=== PATIENT | male | born 1955 | race Caucasian/White ===

== ENCOUNTER 2025-05-08 18:41 | Emergency (ER) | payer MEDICARE, BC ==
[2025-05-08] MEDS ORDERED: Sodium Chloride 0.9% 10 ML Syringe FLUSH PRN (19:18)
[2025-05-08 19:32] LABS: APPEARANCE,URINE CLEAR (CLEAR); GLUCOSE,URINE 500 (NEGATIVE); OCCULT BLOOD,URINE NEGATIVE (NEGATIVE)
[2025-05-08 19:38] LABS: AMPHETAMINES,URINE NEGATIVE (NEGATIVE); BARBITURATES,URINE NEGATIVE (NEGATIVE); MDMA (ECSTASY), URINE NEGATIVE (NEGATIVE); METHAMPHETAMINES,URINE NEGATIVE (NEGATIVE); OPIATES,URINE NEGATIVE (NEGATIVE); OXYCODONE,URINE NEGATIVE (NEGATIVE); PHENCYCLIDINE,URINE NEGATIVE (NEGATIVE); TCA,URINE NEGATIVE (NEGATIVE)
[2025-05-08 19:43] LABS: O2 DELIVERY DEVICE ROOM AIR
[2025-05-08 19:46] LABS: BASOPHILS PERCENT AUTO 0.3 % (0.0-1.0); EOSINOPHILS PERCENT AUTO 0.8 % (1.0-3.0); LYMPHOCYTES PERCENT AUTO 8.4 % (20.5-50.1); MONOCYTES PERCENT AUTO 6.0 % (2-8); NEUTROPHILS PERCENT AUTO 84.5 % (42.2-75.2); PLATELET COUNT,PLT 116 10^3/uL (150-450); RED BLOOD CELL COUNT 5.08 10^6/uL (4.6-6.2); WHITE BLOOD CELL COUNT,WBC 9.5 10^3/uL (5.0-10.0)
[2025-05-08 19:54] LABS: PCO2 VENOUS 34 mmHg (41-51); PH,VENOUS 7.34 (7.31-7.41); PO2 VENOUS 55 mmHg (35-42)
[2025-05-08 19:55] LABS: BASE EXCESS VENOUS -6.6 mmol/l ((-2)-(+3)); BICARBONATE,VENOUS 18 mmol/l (19-25); O2 SATURATION VENOUS 84.2 % (60-80)
[2025-05-08 20:02] LABS: EPITHELIAL CELLS,URINE FEW /HPF (NOT SEEN)
[2025-05-08 20:42] LABS: LACTIC ACID 2.6 mmol/L (0.4-2.0)
[2025-05-08 20:44] LABS: ALANINE AMINOTRANSFERASE,ALT 23 U/L (16-63); ASPARTATE AMNIOTRANSFERASE,AST 19 U/L (15-37); BILIRUBIN TOTAL 0.8 mg/dL (0.2-1.0); BLOOD UREA NITROGEN,BUN 20 mg/dL (7-18); CARBON DIOXIDE,CO2 20 mmol/L (21-32); CHLORIDE,CL 101 mmol/L (98-107); CREATININE 2.23 mg/dL (0.70-1.30); POTASSIUM,K 4.1 mmol/L (3.5-5.1); PROTEIN TOTAL,TP 6.8 g/dL (6.4-8.2); SODIUM,NA 135 mmol/L (136-145)
[2025-05-08 20:45] LABS: INR 1.0 (0.9-1.2); PTT,PARTIAL THROMBOPLSTIN TIME 21.6 SEC (22.0-34.0)
[2025-05-08 20:46] LABS: ESTIMATED GFR 31 mL/min (>=60); ETHANOL BLOOD MEDICAL < 3 mg/dL (0); GLUCOSE RANDOM 494 mg/dL (70-99)
[2025-05-08] MEDS: Magnesium Sulfate 2 GM/50 mL 2 GM in Premix Bag 1 BAG IV ONE (20:57)
[2025-05-08] MEDS ORDERED: 50% Dextrose in Water 50 ML Syringe IVPUSH PRN (21:03)
[2025-05-08] MEDS: Insulin Regular, Human 100 Units/ML 10 ML Vial IV ONE (21:12)
[2025-05-08 21:35] LABS: A/G RATIO 1.27
== END 2025-05-08 23:10 ==
LOC: DL.ED 18:41
DX: F22 Delusional disorders (principal); E86.0 Dehydration; E11.65 Type 2 diabetes mellitus with hyperglycemia; Z91.148 Patient's other noncompliance with medication regimen for other reason; Z79.899 Other long term (current) drug therapy; Z79.84 Long term (current) use of oral hypoglycemic drugs
CPT/HCPCS: 36415; 70450; 80053; 80305; 80307; 81001; 82140; 82803; 82947; 83605; 83735; 84443; 84484; 85025; 85610; 85730; 86140; 93005; 96361; 96365; 99285; A9270; J3475; J7030